=== PATIENT | male | born 1940 | race Caucasian/White ===

== ENCOUNTER 2023-11-22 17:38 | Observation (INO) | payer OTHER, SELFPAY ==
[2023-11-22] VITALS (15 sets, daily range): BP systolic 86–150; BP diastolic 51–134; BMI 20.9
--- NOTE | 2023-11-22 12:49 | ED.GENMED ---
History of Present Illness
General
Chief Complaint: Fainting/Passed Out
Time Seen by Provider: 11/22/23 12:49
Travel History
Have you had any contact with someone who has COVID-19?: No
Do you have any symptoms of coronavirus? Fever > 100 degrees, chills, cough, shortness of breath, sore throat, loss of taste or smell, muscle aches, or headache?: No
History of Present Illness
History of Present Illness:
HPI: Patient came in by ambulance after an event where he reportedly slid to the ground without injury. He has stage IV pancreatic cancer and was recently here with pleural effusions requiring thoracentesis. He has been having diarrhea. The
patient is currently a very poor historian. EMS gave 800 mL of fluid prior to arrival and the patient still arrives hypotensive and tachycardic.
EXAM:
GENERAL: The patient is critically ill in appearance
HEENT: Dry oral mucosa
CARDIOVASCULAR: No murmurs, tachycardic heart rate with irregular rhythm, No chest wall tenderness, port noted in the right anterior chest wall
PULMONARY: Conversational dyspnea, mild respiratory distress, breath sounds are slightly decreased equally
ABDOMEN: Soft with no peritoneal signs, no tenderness, Soto catheter present
NEUROLOGIC: Very weak strength all extremities, the patient is currently a very limited historian and does not participate much with examination
PSYCHIATRIC: Appears encephalopathic, limited insight and judgement
EXTREMITIES: Nontender, trace bilateral edema, moves all extremities equally
SKIN: He appears somewhat pale, no rash
ED COURSE:
1:15 PM: I initially evaluated patient
NUMBER AND COMPLEXITY OF PROBLEMS ADDRESSED AT THE ENCOUNTER
� Chronic conditions affecting care: Stage IV pancreatic cancer diagnosed 2022, prostate cancer diagnosed 2013, atrial fibrillation on Eliquis, has had pleural effusions
� Acute Exacerbation and/or Progression of Chronic Illness:
� Differential Diagnosis includes: Sepsis, dehydration, FRANKIE, rapid A-fib
AMOUNT AND/OR COMPLEXITY OF DATA TO BE REVIEWED AND ANALYZED
� I performed an independent evaluation of and my interpretation is:
EKG: A-fib 142, normal axis, PVC, some ST depression noted in the anterior leads
CT:
X-rays: I personally reviewed chest x-ray with suggest some degree of right pleural effusion
Laboratory Studies: White count 2.6 (was normal at the end of last year on multiple dates), hemoglobin 8.6 (was 8.4 09/25/23)
Other:
� Review of other/old records: I reviewed cardiology's note from 09/25/2023 (Olegario) and the note indicates that the patient had a TTE this past admission that showed preserved LV function with no valvular pathology and normal
diastolic dysfunction and it was suspected that the recurrent effusions related to malignancy as opposed to heart failure. I reviewed records from [place]. The patient was recently admitted to [place] with bowel obstruction and nasogastric tube was
placed. The notes from [place] indicate the patient has pancreatic adenocarcinoma/metastatic disease currently on palliative therapy he had acute on chronic renal insufficiency at that time the notes from [place] suggest that the pleural effusion was
more likely transudative as opposed to malignant
� Clinical information was obtained by an independent historian: I spoke to daughter, Saniya, phone number [phone]- has had 3 episodes of AFib related to dehydration at [place]
� Prescriptions/Medications Considered but not given:
� Further testing considered but not performed:
RISK OF COMPLICATIONS AND/OR MORBIDITY OR MORTALITY OF PATIENT MANAGEMENT
� Social determinants of health affecting care: Lives at home with
� Discussion with other providers: Discussed with Dr. Alvarez at 1:40 PM who agrees with aggressive IV fluids +/- cardioversion; hospitalist for admission
� Escalation of care including admission/observation vs risk of discharge considered: Stage IV panc CA. Weakness / slid to ground. Very ill in appearance. Hypotensive and tachycadic. In AFib rates 140s - 170s. Initial systolics
in the 80s. Was given 800mL APPARATUS CLEANER by EMS. H/o PAF on Eliquis. He is encephalopathic. Spoke to ; she thinks he has been taking his meds. Spoke to daughter in [place] - we are trying to get records from [place], but she states this has happened 3x in past
and always gets fluids and never was shocked and gets better. Olegario saw in Sep. At that time had thora, BNP 3180, preserved EF and no valve disease and normal diastolic function by TTE - felt these were malignant effusions. CXR is not too bad
today. Since he arrived hypotensive and tachycardic, I spoke to about cardioversion; 'you better talk to a ancillary services manager therapy first'. Currently HR 150s, SBP 94. On reassessment at 3 PM, blood pressure up to the 120s and heart rate still elevated but
a little bit better. Overall he does appear significantly improved regarding his mental status.
Phy Exam
Physical Exam
Physical Exam:
See HPI
Course
Orders/Labs/Results
Orders:
Orders
11/22/23
Electrocardiogram (*1) Stat
Comment: ALREADY DONE
11/22/23 12:49
Complete Blood Count/With Diff Urgent
11/22/23 12:51
CR Chest Portable - 1 View Urgent
Comment:
Reason For Exam: sob
Reason Study Needs to be Portable: Patient Unstable
11/22/23 13:02
NT-proBNP Urgent
Troponin I Urgent
11/22/23 13:15
Comprehensive Metabolic Panel Urgent
11/22/23 13:17
0.9% Sodium Chloride 1000 ml [Nss] 1,000 ml IV BOLUS
11/22/23 13:25
Lactic Acid Q4H
Comment: CANCEL 2nd LACTIC ACID IF 1st LACTIC ACID IS LESS THAN 2
Blood Culture Q30M
HERI Source: Blood/Venous
Specimen Description:
Blood Culture Q30M
HERI Source: Blood/Venous
Specimen Description:
11/22/23 13:55
Urinalysis Reflex To Culture Urgent
Date Specimen was Collected: 11/22/23
Time Specimen was Collected: 13:37
Urine Microscopic Reflex Cult Urgent
Urine Culture Urgent
HERI Source: U
Specimen Description:
Date Specimen was Collected: 11/22/23
Time Specimen was Collected: 13:37
11/22/23 14:45
Diltiazem 125 mg/125 ml Nss [Cardizem] 125 mg in 125 ml IV PER PROTOCOL
Initial dose in mg/hr, then titrate:: 5
Titrate to keep:: Heart rate 80-100 bpm
Titrate by mg/hr:: 5 mg/hr
Frequency of titrations (minutes):: 15
Maximum dose in mg/hr:: 15
11/22/23 17:30
Lactic Acid Q4H
Comment: CANCEL 2nd LACTIC ACID IF 1st LACTIC ACID IS LESS THAN 2
Abnormal Lab Results
11/22/23 11/22/23 11/22/23
12:49 13:15 13:25
WBC 2.6 L 10^3/uL
(4.8-10.8)
RBC 2.59 L 10^6/uL
(4.70-6.10)
Hgb 8.6 L g/dL
(13.0-18.0)
Hct 24.6 L %
(39.0-52.0)
MCV 95.0 H fL
(80.0-94.0)
MCH 33.2 H pg
(27.0-31.0)
RDW 19.9 H %
(11.5-14.5)
MPV 11.3 H fL
(7.4-10.4)
Absolute Neuts (auto) 1.3 L 10^3/uL
(1.4-6.5)
Absolute Lymphs (auto) 0.7 L 10^3/uL
(1.2-3.4)
Immature Gran % 1.2 H %
(0-0.5)
Monocytes % 16.4 H %
(1.7-9.3)
Sodium 133 L mmol/L
(135-145)
Carbon Dioxide 17 L mmol/L
(22-30)
BUN 24 H mg/dl
(9-20)
Glucose 102 H mg/dl
(70-99)
Lactic Acid 2.4 H mmol/L
(0.7-2.0)
Total Protein 4.2 L g/dl
(6.3-8.2)
Albumin 2.1 L g/dl
(3.5-5.0)
Urine Ketones
Ur Occult Blood Reflex
Urine Nitrite (Reflex)
Urine Bilirubin
Leukocyte Esterase Rfl
Urine RBC
Urine Bacteria (Reflex)
Urine Yeast
Urine Albumin (Reflex)
11/22/23
13:55
WBC
RBC
Hgb
Hct
MCV
MCH
RDW
MPV
Absolute Neuts (auto)
Absolute Lymphs (auto)
Immature Gran %
Monocytes %
Sodium
Carbon Dioxide
BUN
Glucose
Lactic Acid
Total Protein
Albumin
Urine Ketones 1+ A
(Negative)
Ur Occult Blood Reflex 3+ A
(Negative)
Urine Nitrite (Reflex) Positive A
(Negative)
Urine Bilirubin 2+ A
(Negative)
Leukocyte Esterase Rfl 1+ A
(Negative)
Urine RBC 3-6 A /HPF
(0-2)
Urine Bacteria (Reflex) Moderate A
(Negative)
Urine Yeast Few A
(Negative)
Urine Albumin (Reflex) 1+ A
(Neg - Trace)
11/22/23 12:49
11/22/23 13:15
Vital Signs
Initial and Last Documented VS:
Initial Vital Signs
Pulse Resp BP Pulse Ox
159 20 101/60 91
11/22/23 12:40 11/22/23 12:40 11/22/23 12:40 11/22/23 12:40
Last Documented Vital Signs
Pulse Resp BP Pulse Ox
147 19 124/70 99
11/22/23 14:15 11/22/23 14:15 11/22/23 14:04 11/22/23 13:15
*Critical Care Note
Total Time (30-74mins, 75-104mins- exclusive of procedures): 55 min
comment:
Patient is critically ill in rapid A-fib and hypotensive. He appears dehydrated. He was initially given IV fluids and vital signs closely monitored. At numerous discussions - with cardiology, family over the phone and at bedside.
ED Attending Note
-
Portions of this chart may have been created with voice recognition software.� Occasional wrong word or��sound alike� substitutions may have occurred due to the inherent limitations of voice recognition software.
Discharge Plan
Departure
Patient Disposition: Admit
Date of Disposition: 11/22/23
Time of Disposition: 14:52
Presentation/result/management discussed w/ accepting MD/DO: Hospitalist
Discharge Problem:
Acute dehydration, Atrial fibrillation with RVR
Prescriptions:
No Action
omeprazole 20 mg capsule,delayed release(DR/EC)
20 mg PO DAILY
Eliquis 5 mg tablet
5 mg PO BID
Referrals:
NONE,* [Family Provider] -
Interventions
Interventions:
*Risk Screen - Suicide Last Done: 11/22/23 12:46
*General Assessment Last Done: 11/22/23 12:46
*Neglect/Abuse Screening Last Done: 11/22/23 12:46
ED- Fall Risk Assessment Last Done: 11/22/23 14:21
*ED COVID-19 Vaccine History Last Done: 11/22/23 13:07
ED- Cardiac Assessment Last Done: 11/22/23 14:21
ED- Neurological Assessment Last Done: 11/22/23 14:22
[2023-11-22 12:54] LABS: % Basophils 0.8 % (0-2); % Eosinophils 4.7 % (0-6); % Immature Granulocytes 1.2 % (0-0.5); % Lymphocytes 26.6 % (20.5-51.1); % Monocytes 16.4 % (1.7-9.3); % Neutrophils 50.3 % (42.2-75.2); Absolute Eosinophils 0.1 10^3/uL (0-0.7); Absolute Lymphocytes 0.7 10^3/uL (1.2-3.4); Absolute Monocytes 0.4 10^3/uL (0.1-0.6); Absolute Neutrophils 1.3 10^3/uL (1.4-6.5); Hematocrit 24.6 % (39.0-52.0); Hemoglobin 8.6 g/dL (13.0-18.0); Mean Corpuscular Hgb 33.2 pg (27.0-31.0); Mean Platelet Volume 11.3 fL (7.4-10.4); Nucleated Red Blood Cells % 0 % (-); Platelet Count 194 10^3/uL (130-400); Red Blood Cell Count 2.59 10^6/uL (4.70-6.10); Red Cell Dist. Width 19.9 % (11.5-14.5); White Blood Cell Count 2.6 10^3/uL (4.8-10.8)
--- NOTE | 2023-11-22 13:25 | PHANOTE ---
Med Rec Note:
Pt unable to answer questions, and pt's spouse does not know what medications he is taking. She stated she got 2 medications from the pharmacy and that is it. There were 2 medications filled recently through Dr Cevallos that match the pt's discharge
records from 09/26/23.
[2023-11-22] MEDS: NSS 1000 IV ×2 (13:31→20:37)
[2023-11-22 13:35] LABS: NT-proBNP 4560 pg/ml; Troponin I 0.013 ng/ml
[2023-11-22 13:45] LABS: Lactic Acid 2.4 mmol/L (0.7-2.0)
[2023-11-22 13:48] LABS: ALT (SGPT) 17 U/L (0-50); AST (SGOT) 23 U/L (17-59); Albumin 2.1 g/dl (3.5-5.0); Alkaline Phosphatase 99 U/L (38-126); Blood Urea Nitrogen 24 mg/dl (9-20); Calcium 8.4 mg/dl (8.4-10.2); Carbon Dioxide 17 mmol/L (22-30); Chloride 106 mmol/L (98-107); Glucose 102 mg/dl (70-99); Potassium 3.8 mmol/L (3.5-5.1); Sodium 133 mmol/L (135-145); Total Bilirubin 0.9 mg/dl (0.2-1.3); Total Protein 4.2 g/dl (6.3-8.2); eGFR 54.17
[2023-11-22 14:03] LABS: Urine Albumin 1+ (Neg - Trace); Urine Bilirubin 2+ (Negative); Urine Character Clear (Clear); Urine Color Yellow; Urine Glucose Negative (Negative); Urine Ketone 1+ (Negative); Urine Leukocyte 1+ (Negative); Urine Nitrite Positive (Negative); Urine Occult Blood 3+ (Negative); Urine Urobilinogen 1+ (Neg - 1+)
[2023-11-22 14:18] LABS: Urine Bacteria Moderate (Negative); Urine Urothelial Cell 0-2 /LPF (FEW); Urine Yeast Few (Negative)
[2023-11-22] MEDS: CARDIZEM 125 IV (14:38)
--- NOTE | 2023-11-22 16:13 | HPS.HSE ---
Family Physician
-
Family Physician: * NONE
Chief Complaint
-
weakness, tachycardia, low BP
History of Present Illness
The patient is an 83 y/o male with past medical history of Prostate Ca s/p XRT (2013), Stage IV Pancreatic Cancer (diagnosed earlier this year) on chemotherapy, last dose at [facility] on Thursday, Chronic Pleural Effusions (negative for malignant
cell on September thoracentesis here), Paroxysmal Atrial Fibrillation on quis, Chronic Anemia, Spinal Stenosis presented to the emergency department via EMS due to weakness, slid to the floor�without injury. He has decreased oral intake at home
and has chronic diarrhea. Last palliative chemo was Thursday at [facility]. [facility] for bilateral pleural effusions for which he underwent thoracentesis, and was admitted here in
September due to acute hypoxic respiratory failure, thoracentesis here 09/26/23 1400 straw-colored fluid, negative for malignant cells on pathology report. He is not on AV blockers for known A.fib, and typically will go into A.fib with RVR that
improves with hydration. In ED he is hypotensive initially in the 80s, HR 150s, improved with IVF 800 mL total and Diltiazem gtt at 5. He initially was altered mental status, which improved when HR improved. No CP, no n/v, he has chronic indwelling
Soto catheter. He has help from his family and home health. Of note, he was recently in rehab for PT however family took him home once they had a COVID outbreak at the facility. Oncologist is Dr. Ruby at [facility].
ED txt: Cardizem gtt, IV fluid bolus 1 liter
Medical History
Past Medical History
Past Medical History: Reports Other (Prostate Ca s/p XRT (2013), Pancreatic Cancer, Pleural Effusions, Paroxysmal Atrial Fibrillation on Eliquis, Spinal Stenosis)
Additional Past Medical History:
Echo 09/2023 echocardiogram which showed ejection fraction of 65% to 70%, small left ventricle, some left ventricular hypertrophy, mild mitral regurgitation, mild tricuspid regurgitation, estimated pulmonary artery pressure of 40-45 mmHg, and
pleural effusion as seen in previous imaging
Past Surgical History: Reports Other
Additional Past Surgical History:
Lumbar Laminectomy (2013)
Prostate XRT (2013)
Left Knee meniscus repair
Social History
Tobacco: Non-smoker
Alcohol: Occasional (social but has not drank since 01/2023.)
Drug: None
Personal:
Family History
Family History: Not pertinent and Other (Father COPD/Smoker/Probable Lung Ca; Mother Healthy; Denies any other known cancers)
Allergies / Home Medications
Allergies reflects when Allergies were last updated in [employer].
Home Medications with original date entered in [employer]
Allergy/Medication List:
Allergies
Allergy/AdvReac Type Severity Reaction Status Date / Time
chocolate flavor Allergy sneezing Verified 02/28/23 16:13
house dust Allergy SNEEZING Verified 09/23/23 23:28
mold Allergy sneezing Verified 02/28/23 16:13
orange Allergy ORANGE Verified 09/23/23 23:28
PEEL-RASH
pollen extracts Allergy sneezing Verified 02/28/23 16:13
Home Medications
apixaban 5 mg tablet (Eliquis) 5 mg PO BID atrial fibrillation 09/23/23
omeprazole 20 mg capsule,delayed release 20 mg PO DAILY Gastrointestinal Issue 09/23/23
Review of Systems
-
A 12 point ROS was completed and negative except as noted: Yes
Physical Exam
Vital Signs
Vital Signs
Pulse Resp BP Pulse Ox
80 21 105/67 92
11/22/23 16:00 11/22/23 16:00 11/22/23 16:00 11/22/23 15:45
Physical Exam
General: Appears Chronically Ill
HEENT: NormoCephalic and Anicteric
Respiratory: Clear
Cardiac: S1/S2 and Irregular Rhythm
GI: Soft, Non Tender, Non Distended and Normal Bowel Sounds
Musculoskeletal: No Clubbing, No Cyanosis, Edema, Left Lower Extremity and Edema, Right Lower Extremity
Skin: Warm and Dry
Neuro: Awake, Alert, Oriented, No Motor Deficits and Nonfocal/grossly intact
Psych: Calm
Laboratory Results
-
11/22/23 12:49
11/22/23 13:15
Laboratory Results
Lactic Acid 2.4 mmol/L (0.7-2.0) H 11/22/23 13:25
Total Bilirubin 0.9 mg/dl (0.2-1.3) 11/22/23 13:15
AST 23 U/L (17-59) 11/22/23 13:15
ALT 17 U/L (0-50) 11/22/23 13:15
Alkaline Phosphatase 99 U/L (38-126) 11/22/23 13:15
Troponin I 0.013 ng/ml 11/22/23 13:02
Data Reviewed
-
Diagnostic Radiology: Report Reviewed by me (CXR Mild CHF. Small right pleural effusion with associated atelectasis and/or pneumonia.)
Medical Tests (Nuc Med, Echo, EKG etc): Image Personally Visualized and interpreted and Report Reviewed by me (Reji RVR)
Impression/Plan
-
IMPRESSION:The patient is an 83 y/o male with past medical history of Prostate Ca s/p XRT (2013), Stage IV Pancreatic Cancer (diagnosed earlier this year) on chemotherapy, last dose at [facility] on Thursday, Chronic Pleural Effusions (negative
for malignant cell on September thoracentesis here), Paroxysmal Atrial Fibrillation on , Chronic Anemia, Spinal Stenosis presented to the emergency department via EMS due to weakness, slid to the floor�without injury. In ED he is hypotensive
initially in the 80s, HR 150s, improved with IVF 800 mL total and Diltiazem gtt at 5. He initially was altered mental status, which improved when HR improved. No CP, no n/v, he has chronic indwelling Soto catheter. He has help from his family and
home health. Of note, he was recently in rehab for PT however family took him home once they had a COVID outbreak at the facility. Oncologist is Dr. Ruby at [facility].
ED txt: Cardizem gtt, IV fluid bolus 1 liter
#A.fib with RVR, rate controlled on Diltiazem gtt currently with improved blood pressure SBP 120s
-Tele monitoring
-Discussed with Cardiology Dr. Alvarez, plan is to start Metoprolol 12.5 mg PO BID and wean Diltiazem gtt to off in 2 hours post Metoprolol dosing and continue IV hydration
-IVF NS 50 mL per hour following initial 1 liter, as patient has mild pulmonary vascular congestion
-continue home Eliquis
#Neutropenia 2.6 WBC ANC 1.3 , s/p Chemo Thursday
-repeat CBC in am, monitor
#FRANKIE creat 1.3 (baseline 1.0)
-hydration and repeat labs in am
#Hyponatremia 133
-IVF, monitor labs in am
#Metabolic acidosis CO2 17, Lactic acidosis LA 2.4
-likely due to volume depletion
-IVF, repeat labs with serial LA levels
#Albumin 2.1
-family states patient is not tolerating much orals due to cancer, will give Full Liquid diet at family request
DVT proph-Eliquis
DNR per discussion with patient and his
--- NOTE | 2023-11-22 17:25 | CON.CAR ---
Consultation
Consultation Request
Date/Time Consultation Requested: November 22, 2023
Date/Time Consultation Performed: November 22, 2023
Requesting Provider: Hospitalist
Performing Provider: Kim
Reason for Consultation: Atrial fibrillation
Medical History
-
Chief Complaint: Atrial fibrillation
History of Present Illness:
83-year-old male who has stage IV metastatic pancreatic cancer who has an extensive medical history as delineated below who presents for evaluation for hypotension, tachycardia, and diagnosed with atrial fibrillation in the emergency department. He
was given aggressive hydration and converted to sinus rhythm on IV diltiazem. He has malignant pleural effusions and is getting palliative chemotherapy at [facility]. I do not have current records available for that. He is planned for more pallitative
chemo. Functional capacity is rapidly declining. Prior PVI in 2019. Recent admit in September.
Past Medical History
Past Medical History: Arrhythmias and Cancer
Social History
Tobacco: Non-Smoker
Alcohol: None
Drug: None
Personal:
Living: With Family
Employment: Retired
Family History
Family History: Reviewed & Not Pertinent
Allergies / Home Medications
Allergy/AdvReac Type Severity Reaction Status Date / Time
chocolate flavor Allergy sneezing Verified 02/28/23 16:13
house dust Allergy SNEEZING Verified 09/23/23 23:28
mold Allergy sneezing Verified 02/28/23 16:13
orange Allergy ORANGE Verified 09/23/23 23:28
PEEL-RASH
pollen extracts Allergy sneezing Verified 02/28/23 16:13
Medication Instructions Recorded Confirmed Type
apixaban 5 mg tablet (Eliquis) 5 mg PO BID atrial fibrillation 09/23/23 11/22/23 History
omeprazole 20 mg capsule,delayed 20 mg PO DAILY Gastrointestinal 09/23/23 11/22/23 History
release Issue
Review of Systems
-
All other systems: Negative unless noted
Constitutional: Fatigue
Abdomen/GI: Abdominal Pain
Neurological: Weakness
Physical Exam
Vital Signs
Pulse Resp BP Pulse Ox
75 24 128/67 100
11/22/23 17:00 11/22/23 17:00 11/22/23 17:00 11/22/23 16:30
Lab Results
11/22/23 12:49
11/22/23 13:15
Troponin I 0.013 ng/ml 11/22/23 13:02
[id number]-[id number] Pept 4560 pg/ml 11/22/23 13:02
Physical Exam
General: Poor Appetite
HEENT: Normocephalic
Respiratory: Clear
Cardiac: S1/S2 and Regular Rhythm
Breast: Deferred by me
GI: Soft, Non Tender and Non Distended
Skin: Warm and Dry
Neuro: Awake, Alert and Oriented
Hematologic/Lymphatic: No Lymphadenopathy
Psych: Calm
Impression / Plan
-
PCP: Dr. Wagner
Oil Well Logging Engineer: Dr. Alvarez, last seen 05/2022
Impression:
Hypotension
Tachycardia
Recurrent atrial fibrillation
Diminished functional capacity
Acute hypoxic respiratory failure
History acute heart failure with preserved ejection fraction
Pleural effusions, right likely malignant
Macrocytic anemia
Thrombocytopenia
Pancreatic cancer on chemotherapy (gemcitabine/carboplatin) at [facility] (Dr. Ruby)
Recurrent Pleural effusions s/p b/l thoracentesis reportedly malignant (08/2023)
Hypertension
Paroxysmal atrial fibrillation
s/p PVI ablation 02/01/2019Chronic anticoagulation with Eliquis
spinal stenosis s/p laminectomy 2013 at [facility]
Prostate cancer s/p XRT 2013 (Dr. Rascon)
Echo 09/24/2023:�EF 65 to 70%, mild concentric LVH, mild MR, mild TR, PAP 40 to 45 mmHg
Exercise nuclear stress test 11/17/2018:�Normal perfusion: 6 minutes, 7 METS, 111% APMHR.� EKG negative for ischemia, rare PVCs, EF 54%
Plan:
Patient is an 83-year-old male with a history of paroxysmal atrial fibrillation status post PVI ablation January 2019 on chronic anticoagulation with Eliquis, prostate cancer s/p XRT,� recent diagnosis of pancreatic cancer on chemotherapy, spinal
stenosis who presented 09/23/2023 with increasing shortness of breath/DOHERTY.� Patiently currently being treated for prostate cancer at [facility] and reportedly had recent thoracentesis which was reportedly malignant.� CXR noted to have moderate right
pleural effusion and small left pleural effusion.� Abdominal ultrasound negative for ascites.� proBNP 3180.� Troponin peaked at 0.069.� EKG showed sinus rhythm.� Cardiology being consulted secondary to suspected acute on chronic heart failure.
Patient reports he is generally active without chest pain, dizziness, palpitations. He has some DOHERTY (worse recently) and occasional LE edema worse at the end of the day. Uses compression stockings at home.�
-History of paroxysmal atrial fibrillation status post PVI ablation in 2018.� EKG and personal review of telemetry demonstrates sinus rhythm.� Maintained on anticoagulation with Eliquis
-Anemia and thrombocytopenia, being followed by heme/onc
-Agree with aggressive hydration
-Can initiate metoprolol 12.5 mg twice daily as blood pressure tolerates 2 hours after IV diltiazem was stopped. Discussed with Dr. Bustos
-Prognosis appears grim and ongoing discussions with family regarding palliative care. It appears the patient is now DNR
Data Reviewed
-
EKG: Tracing Personally Visualized and interpreted
Radiology: Image Personally Visualized and interpreted
Medical Tests (Nuc Med, Echo etc): Image Personally Visualized and interpreted
Labs: Labs Reviewed by me
Old Records: Requested
[2023-11-22] MEDS: LOPRESSOR 12.5 MG PO (18:00)
[2023-11-22 18:55] LABS: Lactic Acid 1.1 mmol/L (0.7-2.0)
[2023-11-22] MEDS: ELIQUIS 5 MG PO (20:37)
--- NOTE | 2023-11-22 22:10 | PTCARENOTE ---
Received patient from ER, AAOx3. Patient transferred from stretcher to bed with assist of 4. Patient has tejada catheter draining clear yellow urine. Patient with watery stool x 2. Assist of 2 to transfer to [facility]. Cardizem gtt was discontinued by
DATA ENTRY ASSISTANT upon arrival to floor. Oriented to floor, plan of care continues.
[2023-11-23] VITALS (8 sets, daily range): BP systolic 96–150; BP diastolic 49–80; O2SAT 96
[2023-11-23 06:08] LABS: Hematocrit 22.4 % (39.0-52.0); Hemoglobin 7.5 g/dL (13.0-18.0); Mean Corp Hgb Conc. 33.5 g/dL (33.0-37.0); Mean Corpuscular Hgb 33.3 pg (27.0-31.0); Mean Corpuscular Volume 99.6 fL (80.0-94.0); Mean Platelet Volume 11.2 fL (7.4-10.4); Platelet Count 159 10^3/uL (130-400); Red Blood Cell Count 2.25 10^6/uL (4.70-6.10); White Blood Cell Count 2.8 10^3/uL (4.8-10.8)
[2023-11-23 06:33] LABS: Blood Urea Nitrogen 21 mg/dl (9-20); Calcium 7.9 mg/dl (8.4-10.2); Carbon Dioxide 19 mmol/L (22-30); Chloride 107 mmol/L (98-107); Estimated Creatinine Clearance 44 ml/min; Glucose 86 mg/dl (70-99); Magnesium 1.9 mg/dl (1.6-2.3); Potassium 3.5 mmol/L (3.5-5.1); Sodium 134 mmol/L (135-145); eGFR 54.17
--- NOTE | 2023-11-23 08:42 | W.PN.HOSP.TC ---
Addendum entered and electronically signed by Daniel Mckenzie MD 11/23/23 17:43:
Tried calling spouse with update, was answered but no voicemail available just blank space review of case management notes and physical therapy recommending short-term rehab however spouse on conversation with case management requested visiting
nurse Association follow-up to see how he is tomorrow with PT progress and presumptive discharge date will be tomorrow after another course of IV fluids overnight.
Original Note:
Today's Communication/Plan
-
Continue to hydrate cautiously today
Increase activity with PT
Advance diet to low-fat
Return to palliative care options at time of discharge and follow-up with [facility]
Assessment / Plan
Assessment / Plan
The patient is an 83 y/o male with past medical history of Prostate Ca s/p XRT (2013), Stage IV Pancreatic Cancer (diagnosed earlier this year) on chemotherapy, last dose at [facility] on Thursday, Chronic Pleural Effusions (negative for malignant
cell on September thoracentesis here), Paroxysmal Atrial Fibrillation on , Chronic Anemia, Spinal Stenosis presented to the emergency department via EMS due to weakness, slid to the floor�without injury. He has decreased oral intake at home
and has chronic diarrhea.
Last palliative chemo was Thursday at [place]. Patient was [facility] to [facility] August for bilateral pleural effusions for which he underwent thoracentesis, and was admitted here in September due to acute hypoxic
respiratory failure, thoracentesis here 09/26/23 1400 straw-colored fluid, negative for malignant cells on pathology report. He is not on AV blockers for known A.fib, and typically will go into A.fib with RVR that improves with hydration.
In ED he is hypotensive initially in the 80s, HR 150s, improved with IVF 800 mL total and Diltiazem gtt at 5. He initially was altered mental status, which improved when HR improved. No CP, no n/v, he has chronic indwelling Soto catheter. He has
help from his family and home health. Of note, he was recently in rehab for PT however family took him home once they had a COVID outbreak at the facility. Oncologist is Dr. Ruby at [facility].
ED txt: Cardizem gtt, IV fluid bolus 1 liter
#A.fib with RVR, rate controlled on Diltiazem gtt currently with improved blood pressure SBP 120s
-Tele monitoring
-Discussed with Cardiology Dr. Alvarez, plan is to start Metoprolol 12.5 mg PO BID and and now off diltiazem drip remains in sinus rhythm
-IVF NS 50 mL per hour following initial 1 liter, as patient has mild pulmonary vascular congestion
-continue home Eliquis
#Neutropenia 2.6 WBC ANC 1.3 , s/p Chemo Thursday
-repeat CBC in am, monitor
#FRANKIE creat 1.3 (baseline 1.0)
-hydration and repeat labs in am
#Hyponatremia 133
-IVF, monitor labs in am
#Metabolic acidosis CO2 17, Lactic acidosis LA 2.4
-likely due to volume depletion
-IVF, repeat labs with serial LA levels
-Improved would hydrate 1 more day with IV fluids
#Albumin 2.1
-family states patient is not tolerating much orals due to cancer, will give Full Liquid diet at family request
DVT proph-Eliquis
DNR per discussion with patient and his
Anticipated Discharge: Within 24 hours
Subjective/Interval History
-
Date of Service: November 23, 2023
Stools continue which appear to be chronic however tolerated full liquid diet overnight wants to advance.
Objective Data
-
Labs:
Laboratory Results
11/23/23
05:43
WBC 2.8 L
Hgb 7.5 L
Hct 22.4 L
Plt Count 159
Sodium 134 L
Potassium 3.5
Chloride 107
Carbon Dioxide 19 L
BUN 21 H
Creatinine 1.3
Glucose 86
Calcium 7.9 L
Vital Signs:
Vital Signs
Temp Pulse Resp BP Pulse Ox
97.4 F 72 16 127/63 98
11/23/23 08:16 11/23/23 08:16 11/23/23 08:16 11/23/23 08:16 11/23/23 08:16
I&O
11/22/23 11/23/23 11/24/23
06:59 06:59 06:59
Intake Total 720 / 720
Output Total 375 / 375
Balance 345 / 345
Review of Systems
-
History Source: Patient
Constitutional: Reports Weight Loss
EENT: Reports No Symptoms Reported
Respiratory: Reports No Symptoms
Cardiac: Reports No Symptoms
Abdomen/GI: Reports No Symptoms
Skin: Reports Other (Pallor)
Endocrine: Reports No Symptoms
Physical Exam
-
General: No Apparent Distress, Conversant and Cachectic
HEENT: Normocephalic
Respiratory: Clear to Auscultation
Cardiac: Regular Rhythm (Back in sinus rhythm) and S1/S2
GI: Soft, Nontender and Nondistended
Musculoskeletal: No Edema
Neuro: Awake, Alert, Oriented and AO x 3
Psych: Calm
Data Reviewed
-
Total Time Spent with Patient (in minutes): 45
Labs: Labs Reviewed by me (White count 2.8/hemoglobin down to 7.5 from 8.6/creatinine stable 1.3)
[2023-11-23] MEDS: PROTONIX 40 MG PO (09:00)
[2023-11-23] MEDS: LOPRESSOR 12.5 MG PO ×2 (09:00→20:07)
[2023-11-23] MEDS: ELIQUIS 5 MG PO ×2 (09:00→20:07)
--- NOTE | 2023-11-23 11:41 | PTOTSP ---
SPEECH THERAPY SWALLOW EVALUATION:
Clinical signs of oropharyngeal dysphagia, likely [id number] related to weakness/deconditioning secondary to stage IV pancreatic cancer and metabolic acidosis. Patient at risk for aspiration and related pulmonary complications given current
potential pneumonia and lethargy/confusion. Patient grossly tolerated p.o. trials at this time. Recommend IDDSI Level 6 Soft and Bite sized diet with thin liquids with aspiration precautions including: upright positioning, slow rate of intake, small
sips/bites, only feeding when patient awake/alert, alternating textures, double swallow, supervision/assistance with meals. Medications whole with liquid. Speech therapy to follow, monitor CXR and labs, assess diet tolerance and modify as
appropriate, determine need for instrumental assessment of swallowing if indicated, and provide continued education regarding aspiration risks/precautions. Discussed with patient, family, RN, and MD.
RECOMMEND:
1) IDDSI Level 6 Soft and Bite sized diet with thin liquids
2) Aspiration precautions: upright positioning, slow rate of intake, small sips/bites, only feeding when patient awake/alert, alternating textures, double swallow, supervision/assistance with meals
3) Speech therapy to follow, monitor CXR and labs, assess diet tolerance and modify as appropriate, determine need for instrumental assessment of swallowing if indicated, and provide continued education regarding aspiration risks/precautions
[2023-11-23] MEDS: IMODIUM 2 MG PO ×2 (12:14→21:46)
[2023-11-23] MEDS: KCL 20 MEQ PO (13:17)
[2023-11-23] MEDS: NSS 1000 IV (14:26)
--- NOTE | 2023-11-23 14:59 | W.PN.CARDCBS ---
Today's Communication / Plan
-
Remains in sinus rhythm
Sign off
Impression / Plan
-
PCP: Dr. Wagner
Hairspring Vibrator: Dr. Alvarez, last seen 05/2022
Impression:
Presented 11/22/2023 with weakness, tachycardia, low BP
Hypotension
Tachycardia
Recurrent atrial fibrillation, spontaneously converted to SR
Diminished functional capacity
Acute hypoxic respiratory failure
Hypertension
Paroxysmal atrial fibrillation
s/p PVI ablation 02/01/2019
Chronic anticoagulation with Eliquis
History acute heart failure with preserved ejection fraction
Macrocytic anemia
Thrombocytopenia
Pancreatic cancer on chemotherapy (gemcitabine/carboplatin) at [facility] (Dr. Ruby)
Recurrent Pleural effusions s/p b/l thoracentesis (08/2023); s/p thoracentesis 09/26/2023
spinal stenosis s/p laminectomy 2013 at [facility]
Prostate cancer s/p XRT 2013 (Dr. Rascon)
DNR
Echo 09/24/2023:�EF 65 to 70%, mild concentric LVH, mild MR, mild TR, PAP 40 to 45 mmHg
Exercise nuclear stress test 11/17/2018:�Normal perfusion: 6 minutes, 7 METS, 111% APMHR.� EKG negative for ischemia, rare PVCs, EF 54%
Plan:
He has spontaneously converted to sinus rhythm
Atrial fibrillation may have been asymptomatic
Continue Lopressor
Continue Eliquis
No further recommendations, will sign off
HPI 11/22/2023:
Patient is an 83-year-old male with a history of paroxysmal atrial fibrillation status post PVI ablation January 2019 on chronic anticoagulation with Eliquis, prostate cancer s/p XRT,� recent diagnosis of pancreatic cancer on chemotherapy, spinal
stenosis who presented 09/23/2023 with increasing shortness of breath/DOHERTY.� Patiently currently being treated for prostate cancer at [place] and reportedly had recent thoracentesis which was reportedly malignant.� CXR noted to have moderate right
pleural effusion and small left pleural effusion.� Abdominal ultrasound negative for ascites.� proBNP 3180.� Troponin peaked at 0.069.� EKG showed sinus rhythm.� Cardiology being consulted secondary to suspected acute on chronic heart failure.
Patient reports he is generally active without chest pain, dizziness, palpitations. He has some DOHERTY (worse recently) and occasional LE edema worse at the end of the day. Uses compression stockings at home.�
Progress Note - Hairspring Vibrator
Subjective
Date of Service: November 23, 2023
No complaints. Has spontaneously converted to sinus rhythm
Objective
Labs:
11/23/23 05:43
11/23/23 05:43
Labs
Hgb 7.5 g/dL (13.0-18.0) L 11/23/23 05:43
Hct 22.4 % (39.0-52.0) L 11/23/23 05:43
Plt Count 159 10^3/uL (130-400) 11/23/23 05:43
Sodium 134 mmol/L (135-145) L 11/23/23 05:43
Potassium 3.5 mmol/L (3.5-5.1) 11/23/23 05:43
BUN 21 mg/dl (9-20) H 11/23/23 05:43
Creatinine 1.3 mg/dL (0.7-1.3) 11/23/23 05:43
Glucose 86 mg/dl (70-99) 11/23/23 05:43
Troponins
11/22/23
13:02
Troponin I 0.013
Vital Signs and I&O:
Vital Signs
Temp Pulse Resp BP Pulse Ox
97.4 F 64 14 103/59 94
11/23/23 11:56 11/23/23 11:56 11/23/23 11:56 11/23/23 11:56 11/23/23 11:56
Vital Signs
Temp Pulse Resp BP Pulse Ox
97.4 F 64 14 103/59 94
11/23/23 11:56 11/23/23 11:56 11/23/23 11:56 11/23/23 11:56 11/23/23 11:56
Intake & Output
11/21/23 11/22/23 11/23/23 11/24/23
06:59 06:59 06:59 06:59
Intake Total 720 / 720
Output Total 375 / 375
Balance 345 / 345
Physical Exam
Physical Exam
General: Well developed, well nourished in NAD.
Neck: Supple, no JVD, HJR, carotids +2 B/L, no bruits bilaterally.
Heart: Non displaced PMI, RRR, no murmurs, No S3, S4, no rubs.
Lungs: Scattered rhonchi
Extremities: No clubbing, cyanosis or edema bilaterally.
Neuro: Grossly nonfocal, awake, alert and oriented x3.
--- NOTE | 2023-11-23 15:30 | CM ---
CM following re: d/c planning
Chart reviewed
CM met with the patient, his spouse, & their daughter at bedside; IA completed
Pt is here as observation, CHRISTIANSON letter explained and copy provided
The patient and his spouse reside in a 2[address] with 10STE
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
Pt is current with [facility] at home and is seen by SNF/PT/OT, patient has rehabbed at [facility], & has the following DME: a walker, w/c, shower rials, a hiking pole, & raised toilet seat
Pt does confirm prescription coverage and rx's are filled at [facility]
Pt PCP-Dr Triston Edwards and his oncologist is Dr. Aayush Ruby
Per PT eval. post d/c recommendation is for SNF
Patient's daughter is requesting the patient be discharged home with home care vs discharging to a SNF when medically stable
CM will continue to monitor patient progress and assist with any needs at d/c as applicable
PLAN; d/c home with [place] provided by [facility] vs SNF
--- NOTE | 2023-11-23 17:02 | PTCARENOTE ---
Patient transferred to room 331 with all belongings. Family at bedside.
[2023-11-24 03:45] VITALS: BP 141/83
[2023-11-24 06:00] VITALS: BMI 20.1
[2023-11-24] MEDS: IMODIUM 2 MG PO ×2 (06:04→11:35)
[2023-11-24 06:25] LABS: Hematocrit 25.9 % (39.0-52.0); Hemoglobin 8.7 g/dL (13.0-18.0); Mean Corp Hgb Conc. 33.6 g/dL (33.0-37.0); Mean Corpuscular Volume 98.1 fL (80.0-94.0); Mean Platelet Volume 10.7 fL (7.4-10.4); Platelet Count 181 10^3/uL (130-400); Red Blood Cell Count 2.64 10^6/uL (4.70-6.10); Red Cell Dist. Width 19.9 % (11.5-14.5); White Blood Cell Count 4.8 10^3/uL (4.8-10.8)
[2023-11-24 06:41] LABS: Blood Urea Nitrogen 17 mg/dl (9-20); Calcium 7.8 mg/dl (8.4-10.2); Carbon Dioxide 21 mmol/L (22-30); Chloride 109 mmol/L (98-107); Estimated Creatinine Clearance 46 ml/min; Glucose 98 mg/dl (70-99); Potassium 3.6 mmol/L (3.5-5.1); Sodium 135 mmol/L (135-145); eGFR 59.63
[2023-11-24] MEDS: LOPRESSOR 12.5 MG PO (08:00)
[2023-11-24] MEDS: PROTONIX 40 MG PO (08:00)
[2023-11-24] MEDS: ELIQUIS 5 MG PO (08:00)
--- NOTE | 2023-11-24 08:53 | W.PN.UPDATE ---
Update Note
Progress Note Update
Patient seen and examined on date of his proposed discharge. Family at bedside. There were called and see the patient after the patient started having some delusions overnight presently stable and back to baseline cognition. Delusions may be in
relation to change in environment see no signs of infection although urinalysis did show some yeast which may be colonizer from his ongoing Soto catheter drainage I feel the patient can be discharged now as the patient's improperly hydrated atrial
fibrillation is converted back to sinus rhythm will be maintained on Lopressor low-dose at 12.5 mg twice daily and should follow-up with urology as scheduled this Thursday for attempted removal of catheter. White count remains normal there is no
febrile course no signs of infection I would not treat the yeast in the urine
--- NOTE | 2023-11-24 08:56 | W.DS.TRANS ---
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
-
Discharge Instructions:
Sleep Apnea Risk Intermediate
Discharge Diagnosis/Procedures Recurrent atrial fibrillation with RVR
Spontaneously converted to sinus rhythm
In relation to dehydration from GI losses and
poor oral intake
Diminished functional capacity from combination
of pancreatic cancer on chemotherapy
Prostate cancer
Indwelling Soto catheter
Diet No restrictions
Activity As tolerated
Driving Restrictions As prior to admission
Other Services VN,PT,OT
Instructions:
Stand-Alone Forms:
Changes to Home Medications: Yes
Discharge Medications:
DC Medications w/original date entered in [facility]MS[facility]
apixaban 5 mg tablet (Eliquis) 5 mg PO BID atrial fibrillation 09/23/23
omeprazole 20 mg capsule,delayed release 20 mg PO DAILY Gastrointestinal Issue 09/23/23
loperamide 2 mg capsule 2 mg PO Q4HPRN PRN diarrhe #30 caps 11/24/23
metoprolol tartrate 25 mg tablet 12.5 mg PO BID #60 tabs 11/24/23
Home Medication Changes
metoprolol tartrate 25 mg tablet 12.5 mg PO BID #60 tabs 11/24/23
Pending Results: No
--- NOTE | 2023-11-24 11:17 | CM ---
Patient seen at bedside with . Per plan is for discharge home today with family supports in car. Patient indicated that she did want [facility] [place] and CM sent referral via all scripts. Patient is OBS/CHRISTIANSON as documented from
yesterday and with no questions. CM will continue to follow for discharge planning needs.
Plan; home with [facility] [place]
[2023-11-24 11:51] VITALS: BP 137/79
--- NOTE | 2023-11-24 12:42 | W.DCSUMMARY ---
Discharge Summary
Discharge Data
Date of Admission: 11/22/23
Date of Discharge: 11/24/23
Total time spent discharging patient (in min): 56
-
Pending Results: No
Hospital Course
83-year-old male with known medical history that includes prostate cancer status post radiation therapy and now stage IV pancreatic cancer diagnosed earlier this year and undergoing chemotherapy at [facility] he also suffers from chronic pleural
effusions most recently of which had undergone thoracentesis with malignant cells not being present he presented with return of prior documented RVR 8 atrial fibrillation and decreased oral intake at home with chronic diarrhea he became weak and
this has been his prior course where he gets dehydrated and enters into a rapid ventricular response A-fib that quickly responds to hydration his presentation this time showed hypotension in the 80s with heart rates in the 150s he was given IV fluid
boluses in the ED and placed on diltiazem drip overnight and spontaneously cardioverted the following morning nonetheless cardiology was consulted and agreed that patient may warrant further additional rate management with metoprolol succinate 12.5
mg twice daily of note the patient has a chronic indwelling Soto catheter and will eventually need outpatient follow-up with urology for void trial and attempt to remove he recently been in rehab and undergoing physical therapy but family took him
out due to a COVID outbreak at the facility he continues to follow with Dr. Ruby at [facility] and plan is to continue the patient seen and evaluated by physical therapy and has also been seen by the speech therapy department in
relation to possible aspiration risk with recommendation for level 6 soft and bite-size diet with thin liquids his hydration status is improved and he had a very large breakfast this morning family is at bedside and came in this morning due to
concerns over the patient having some delusional status overnight no doubt in relation to change in environment and changes room from yesterday. Right now he is back to his baseline I think he can be stable to go home with continued [facility] follow-up
with [facility] following him he has been instructed to continue as needed dosages of Imodium for his intractable diarrhea and to stay as well-hydrated as possible of note urinalysis did show some small amount of white cells in the urine
was sent off for culture also showed some only 'few yeast and final culture results just grew out yeast the patient is asymptomatic from signs of infection as there is no leukocytosis or febrile course I did encourage family members to pursue and
keep the appointment for his urologist this Thursday in the hopes he can undergo and passed a void trial with removal of Soto catheter. We called in a prescription for metoprolol to succinate to his local pharmacy.
Discharge Plan
-
Patient Disposition: Home with Home Care
Discharge Diagnosis/Procedures: Recurrent atrial fibrillation with RVR
Spontaneously converted to sinus rhythm
In relation to dehydration from GI losses and poor oral intake
Diminished functional capacity from combination of pancreatic cancer on chemotherapy
Prostate cancer
Indwelling Soto catheter
Diet: No restrictions
Activity: As tolerated
Driving Restrictions: As prior to admission
Other Services: VN, PT and OT
Referrals:
NONE,* [Family Provider] -
Prescriptions:
New
loperamide 2 mg Capsule
2 mg PO Q4HPRN PRN (Reason: diarrhe) Qty: 30 0RF
metoprolol tartrate 25 mg Tablet
12.5 mg PO BID Qty: 60 0RF
Continued
omeprazole 20 mg capsule,delayed release(DR/EC)
20 mg PO DAILY
Eliquis 5 mg tablet
5 mg PO BID
Discharge Orders:
Discharge Patient (As Directed); Ordered 11/24/23
Ordered By: Daniel Mckenzie
== END 2023-11-24 13:08 | disposition home health service (06) ==
LOC: 3 WEST ACU 17:38
PROVIDERS: ADMITTING PHYSICIAN Internal Medicine; ATTENDING PHYSICIAN Internal Medicine; CONSULT PHYSICIAN Internal Medicine Cardiovascular Disease; EMERGENCY PHYSICIAN Emergency Medicine
DX: I48.0 Paroxysmal atrial fibrillation (principal); R55 Syncope and collapse; R19.7 Diarrhea, unspecified; C25.9 Malignant neoplasm of pancreas, unspecified; I95.9 Hypotension, unspecified; R06.02 Shortness of breath; J90 Pleural effusion, not elsewhere classified; I50.31 Acute diastolic (congestive) heart failure; E86.0 Dehydration; G93.40 Encephalopathy, unspecified; J30.1 Allergic rhinitis due to pollen; D69.6 Thrombocytopenia, unspecified; D64.9 Anemia, unspecified; E87.1 Hypo-osmolality and hyponatremia; E87.20 Acidosis, unspecified; N17.9 Acute kidney failure, unspecified; D70.9 Neutropenia, unspecified; J98.11 Atelectasis; I11.0 Hypertensive heart disease with heart failure; R00.0 Tachycardia, unspecified; Z85.46 Personal history of malignant neoplasm of prostate; Z92.3 Personal history of irradiation; Z79.01 Long term (current) use of anticoagulants; Z92.21 Personal history of antineoplastic chemotherapy; Z91.018 Allergy to other foods; Z66 Do not resuscitate
CPT/HCPCS: 71045; 80048; 80053; 81003; 81015; 83605; 83735; 83880; 84443; 84484; 85025; 85027; 87040; 87086; 87324; 87449; 92610; 93005; 96361; 96374; 97163; 97530; 99291; G0378